=== PATIENT | female | born 1940 | race Caucasian/White ===

== ENCOUNTER 2016-10-05 07:27 | Day surgery (SDC) | payer MEDICARE ==
[~2016-10-05 07:27] MED LIST: Buffered Lidocaine 0.9% SYRIN* 5 ML/SYR SYRINGE INTRADERM ONE; Famotidine IV* 10 MG/ML 2 ML (20 mg) IV ONE
[2016-10-05] MEDS ORDERED: Famotidine IV* 10 MG/ML 2 ML (20 mg) ONE (08:06)
[2016-10-05] MEDS ORDERED: fentaNYL* 50 MCG/ML 2 ML VIAL (100 MCG VIAL) ONE (08:16)
[2016-10-05] MEDS ORDERED: Midazolam* 1 MG/ML 2 ML VIAL (2 MG) ONE (08:16)
[2016-10-05 08:29] LABS: Hematocrit 43 % (35-47); Hemoglobin 14.4 g/dl (12.0-16.0); Mean Corpuscular HGB Conc 33 g/dl (31-36); Mean Corpuscular Hemoglobin 32 pg (27-31); Mean Corpuscular Volume 96 fL (80-97); Mean Platelet Volume 9 um3 (7.4-10.4); Red Blood Count 4.49 10^6/ul (4.0-5.4); Red Cell Distribution Width 14 % (10.5-15); White Blood Count 6.3 10^3/ul (3.5-10.8)
[2016-10-05] MEDS ORDERED: HYDROmorphone* 1 MG/ML 1 ML SYR IV PRN (09:02)
[2016-10-05] MEDS ORDERED: DiMENhydriNATE IV* 50 MG/ML VIAL IV PUSH PRN (09:02)
[2016-10-05] MEDS ORDERED: oxyCODONE TAB* 5 MG TAB PO PRN (09:02)
[2016-10-05] MEDS ORDERED: Acetaminophen IV 1GM/100ML * 10 MG/ML VIAL IVPB ONE (09:02)
[2016-10-05] MEDS ORDERED: Chloroprocaine 2%* 20 ML VIAL ONE (09:06)
[2016-10-05] MEDS ORDERED: Propofol* 10 MG/ML 20 ML BTL IV PUSH ONE (09:31)
[2016-10-05] MEDS ORDERED: Ketorolac INJ* 30 MG/ML 1 ML VIAL ONE (09:31)
[2016-10-05] MEDS ORDERED: Ondansetron INJ* 2 MG/ML VIAL ONE (09:31)
[2016-10-05] MEDS ORDERED: Dexamethasone IV* 4 MG/ML 1 ML (4 MG) ONE (09:31)
[2016-10-05] MEDS ORDERED: Lidocaine 2% PF * 5 ML VIAL ONE (09:31)
[2016-10-05] MEDS ORDERED: Lidocaine 2% JELLY* 6 ML JELLY TOPICAL ONE (09:38)
[2016-10-05] MEDS ORDERED: Acetaminophen TAB* 325 MG PO ONE (09:47)
[2016-10-05 12:01] VITALS: BP 135/82
[2016-10-05] MEDS ORDERED: Acetaminophen TAB* 325 MG ONE (12:01)
--- NOTE | 2016-10-05 13:45 | OP ---
DATE OF PROCEDURE: 10/05/16 - [facility] DATE OF : 42 SURGEON: Nga Acharya MD ANESTHESIOLOGIST: Ruth Cunningham MD ANESTHESIA: Spinal. PRE-OP DIAGNOSIS: Postmenopausal bleeding, abnormal ultrasound finding of endometrial fluid, failed office endometrial biopsy. POST-OP DIAGNOSIS: Postmenopausal bleeding, abnormal ultrasound finding of endometrial fluid, failed office endometrial biopsy. OPERATIVE PROCEDURE: Hysteroscopy, D and C. ESTIMATED BLOOD LOSS: Minimal. SPECIMEN: Endometrial curettings. FLUIDS: Crystalloid. DRAINS: Almost 200 cc of clear urine drained prior to the procedure. FINDINGS: Stenotic external cervical OS, small uterus, normal-appearing uterine cavity with atrophic-appearing endometrium. DESCRIPTION OF PROCEDURE: After informed consent was signed, the patient was taken to the operating room where she was given spinal anesthesia that was found to be adequate. She was prepped and draped in the dorsal lithotomy position in the [facility]. A speculum was placed into the vagina to expose the cervix and the anterior lip of the cervix was grasped with a single- tooth tenaculum. The cervix was dilated with minimal difficulty getting into the external OS, but once that was opened the cervix was easily dilated until the hysteroscope could be inserted. Inspection of the endometrial cavity revealed a normal-appearing endometrial cavity. The hysteroscope was then removed and sharp curettage was used to collect a very scant amount of endometrial tissue. The tenaculum was removed with adequate hemostasis. The speculum was removed. The patient was then placed back into the supine position , awakened from anesthesia, moved to the stretcher, and taken to the recovery room in stable condition. [id number] #: [id number] MTDD
== END 2016-10-05 12:38 | disposition home or self-care (01) ==
LOC: OR 07:27
PROVIDERS: ATTEND Obstetrics & Gynecology
DX: N95.0 Postmenopausal bleeding (principal); I10 Essential (primary) hypertension; E03.9 Hypothyroidism, unspecified; Z86.718 Personal history of other venous thrombosis and embolism; Z79.82 Long term (current) use of aspirin
CPT/HCPCS: 36415; 85025; 85610; 86850; 86900; 86901; 88305; A9270-GY; J1100; J1885; J2250; J2400; J2405; J2704; J3010

== ENCOUNTER 2017-08-13 11:11 | Emergency (ER) | payer MEDICARE ==
[2017-08-13 11:24] VITALS: BP 153/86
--- NOTE | 2017-08-13 11:56 | RAD ---
HISTORY: Hematemesis COMPARISONS: June 27, 2006 VIEWS: 4: Frontal dual-energy and lateral views of the chest. FINDINGS: CARDIOMEDIASTINAL SILHOUETTE: The cardiomediastinal silhouette is normal. SOHAIL: The sohail are normal. PLEURA: The costophrenic angles are sharp. No pleural abnormalities are noted. LUNG PARENCHYMA: There is hyperinflation with flattening of the diaphragm and expansion of the AP diameter of the chest. There is calcified granuloma of the left lower lobe. ABDOMEN: The upper abdomen is clear. There is no subphrenic gas. BONES AND SOFT TISSUES: No bone or soft tissue abnormalities are noted. OTHER: None. IMPRESSION: HYPERINFLATION, CONSISTENT WITH COPD. NO ACTIVE CARDIOPULMONARY DISEASE.
--- NOTE | 2017-08-13 16:38 | UC ---
Cisco Vidal Angela, scribed for Jeffrey Cloud MD on 08/13/17 at 1132 . General HPI - HPI Summary HPI Summary: This pt is a 77 y/o female presenting to [facility] c/o spitting up blood this morning. Pt reports this morning she had post nasal drip and had phlegm in her throat. She states when she tried to bring up the phlegm, she noticed a blood clot in her sputum and blood in her mouth. Denies epistaxis, coughing spells, hematemesis, abd pain, weight loss, night sweats, fever, chills. Pt is not on anticoagulants. She is only taking aspirin. - History of Current Complaint Chief Complaint: UCRespiratory Stated Complaint: SPITTING BLOOD Time Seen by Provider: 08/13/17 11:22 Hx Obtained From: Patient Onset/Duration: Sudden Onset Current Severity: None Pain Intensity: 0 Aggravating: nothing Alleviating: nothing Associated Signs & Symptoms: Positive: Other - NEG: epistaxis, coughing spells, hematemesis, weight loss, night sweats, fever, chills. POS: post nasal drip, blood in sputum. Negative: Abdominal Pain, Cough, Chest Pain, Diaphoresis, Fever, Trauma, Vomiting - Allergy/Home Medications Allergies/Adverse Reactions: Allergies Allergy/AdvReac Type Severity Reaction Status Date / Time amoxicillin Allergy Rash Verified 08/13/17 11:25 Estrogens Allergy See Comment Verified 08/13/17 11:25 PMH/Surg Hx/FS Hx/Imm Hx - Additional Past Medical History Additional PMH: PMHx: arthritis Endocrine History: Hypothyroidism Cardiovascular History: Hypertension - Surgical History Surgical History: Yes Surgery Procedure, Year, and Place: tonsillectomy and adenoidectomy as a child - [place]. wisdom teeth extractiom in dental office. d&c - [facility] - Family History Family History: Mother: ovarian CA - Social History Alcohol Use: Occasionally Alcohol Amount: glass wine couple times per year Substance Use Type: None Smoking Status (MU): Never Smoked Tobacco Review of Systems Constitutional: Other - POS: bloody sputum. NEG: weight loss, night sweats, fever, chills Skin: Negative Eyes: Negative ENT: Other - POS: postnasal discharge, blood clot it sputum. NEG: epistaxis Respiratory: Negative Cardiovascular: Negative Gastrointestinal: Negative - hematemesis Genitourinary: Negative Motor: Negative Neurovascular: Negative Musculoskeletal: Negative Neurological: Negative Psychological: Negative All Other Systems Reviewed And Are Negative: Yes Physical Exam - Summary Physical Exam Summary: VITAL SIGNS: Reviewed. GENERAL: Patient is a well-developed and nourished female who is lying comfortable in the stretcher. Patient is not in any acute respiratory distress. HEAD AND FACE: Normocephalic. No sinus tenderness. EYES: PERRLA, EOMI x 2. EARS: Hearing grossly intact. MOUTH: Oropharynx within normal limits. NECK: Supple, trachea is midline, no adenopathy, no JVD, no carotid bruit. CHEST: Symmetric, no tenderness at palpation LUNGS: Clear to auscultation bilaterally. No wheezing or crackles. CVS: Regular rate and rhythm, S1 and S2 present, no murmurs or gallops appreciated. ABDOMEN: Soft, non-tender. Bowel sounds are normal. No abdominal abnormal pulsations. EXTREMITIES: Full ROM in all major joints, no edema, no cyanosis or clubbing. NEURO: Alert and oriented x 3. No acute neurological deficits. Speech is normal and follows commands. SKIN: Dry and warm Triage Information Reviewed: Yes Vital Signs: Initial Vital Signs Temp 98.8 F 08/13/17 11:21 Pulse 94 08/13/17 11:21 Resp 18 08/13/17 11:21 BP 153/86 08/13/17 11:21 Pulse Ox 100 08/13/17 11:21 Vital Signs Reviewed: Yes Diagnostics - Radiology Chest XR Xray Interpretation: No Acute Changes - IMPRESSION: Hyperinflation, consistent with COPD. No active cardiopulmonary disease. Dr. Cloud has reviewed this radiodology report. Radiology Interpretation Completed By: Radiologist Re-Evaluation - Re-Evaluation First Eval Re-Evaluation Time: 12:03 Comment: I reviewed the chest XR results. Pt will be discharged to home with strict return to ED instructions. Course/Dx - Course Course Of Treatment: This pt is a 77 y/o female presenting to [facility] c/o spitting up blood this morning. Pt reports this morning she had post nasal drip and had phlegm in her throat. She states when she tried to bring up the phlegm, she noticed a blood clot in her sputum and blood in her mouth. Denies epistaxis, coughing spells, hematemesis, abd pain, weight loss, night sweats, fever, chills. Pt is not on anticoagulants. She is only taking aspirin. Chest XR shows hyperinflation, consistent with COPD. No active cardiopulmonary disease. There is no source for the pts hemoptysis. I offered the pt to go to the ER, but she declines. She states she has a follow up with Nick on and she will follow up then. Pt will be discharged to home with follow up from PCP. I strongly recommended the pt that if she has any more episodes of hemoptysis she should go to the ER immediately for further assessment. Pt understands and agrees. I reviewed the chest XR with the pt. Plan of care was discussed with the patient, and pt understands and agrees. All questions were answered to patient satisfaction. There were no further complaints or concerns. Pt is hemodynamically stable, alert and oriented x3. - Differential Dx - Multi-Symptom Provider Diagnoses: Hemoptysis Discharge - Sign-Out/Discharge Documenting (check all that apply): Discharge/Admit/Transfer - Discharge - Discharge Plan Condition: Stable Disposition: HOME Patient Education Materials: Hemoptysis (ED) Referrals: Annamarie Weber MD [Primary Care Provider] - Additional Instructions: FOLLOW UP WITH YOUR PRIMARY CARE PROVIDER WITHIN ONE WEEK FOR HIGH BLOOD PRESSURE NOTED TODAY. RETURN TO URGENT CARE OR THE ED FOR ANY WORSENING OR NEW SYMPTOMS. The documentation as recorded by the Cisco guy Angela accurately reflects the service I personally performed and the decisions made by me, Jeffrey Cloud MD.
== END 2017-08-13 12:08 | disposition home or self-care (01) ==
LOC: UCEAST 11:11
DX: R04.2 Hemoptysis (principal); E03.9 Hypothyroidism, unspecified; I10 Essential (primary) hypertension; Z88.0 Allergy status to penicillin
CPT/HCPCS: 71046; 99212; G0463

== ENCOUNTER 2018-11-17 04:52 | Emergency (ER) | payer MEDICARE ==
[2018-11-17 05:44] LABS: Urine Appearance Cloudy; Urine Bacteria Absent (Absent); Urine Bilirubin Negative (Negative); Urine Blood 3+ (Negative); Urine Glucose Negative (Negative); Urine Ketones Trace (Negative); Urine Nitrite Negative (Negative); Urine Protein 2+(100 mg/dL) (Negative); Urine Red Blood Cell 3+(>10/hpf) (Absent); Urine Specific Gravity 1.015 (1.010-1.030); Urine Urobilinogen Negative (Negative); Urine White Blood Cell 3+(>20/hpf) (Absent)
[2018-11-17 05:46] LABS: Urine Color Red
[2018-11-17] MEDS ORDERED: Acetaminophen TAB* 325 MG PO ONE (05:50)
--- NOTE | 2018-11-17 06:08 | ED ---
GI/ HPI - HPI Summary HPI Summary: Pt. is a 78 y.o female who presents to the ER for hematuria, dysuria and urgency since yesterday. Pt. notes mild left sided back pain. Denies fever, chills, vomiting, CP, SOB. Past hx of hypothyroid and osteoporosis. Pt. is not anticoagulated. Sxs are moderate in severity. No current modifying factors. - History of Current Complaint Chief Complaint: EDUrogenitalProblems Time Seen by Provider: 11/17/18 05:37 Stated Complaint: POS UTI PER PT Hx Obtained From: Patient Pain Intensity: 9 - Allergy/Home Medications Allergies/Adverse Reactions: Allergies Allergy/AdvReac Type Severity Reaction Status Date / Time amoxicillin Allergy Rash Verified 11/17/18 04:55 Estrogens Allergy See Comment Verified 11/17/18 04:55 Home Medications: Home Medications Citrucel Powder 1 deanna PO DAILY PRN 11/17/18 [History Confirmed 11/17/18] Hydrochlorothiazide TAB* 12.5 mg PO DAILY 11/17/18 [History Confirmed 11/17/18] PMH/Surg Hx/FS Hx/Imm Hx Previously Healthy: Yes Endocrine/Hematology History: Reports: Hx Thyroid Disease - hypothyroidism Cardiovascular History: Reports: Hx Hypertension - was just taken off HCTZ one month ago by pcp - changed diet, Other Cardiovascular Problems/Disorders - hx dvt's r/t estrogen use GI History: Reports: Other GI Disorders - constipation - uses prn meds History: Reports: Other Problems/Disorders - recent bladder infection Musculoskeletal History: Reports: Hx Arthritis - osteoarthritis, Other Musculoskeletal History - osteoporosis Sensory History: Reports: Hx Contacts or Glasses - readers Denies: Hx Hearing Aid Opthamlomology History: Reports: Hx Contacts or Glasses - readers - Surgical History Surgery Procedure, Year, and Place: tonsillectomy [place] as a child - [place]. wisdom teeth extractiom in dental office[place] [place] Anesthesia Reactions: No Infectious Disease History: No Infectious Disease History: Denies: Traveled Outside the [place] in Last 30 Days - Family History Known Family History: Positive: Non-Contributory Family History: Mother: ovarian CA - Social History Occupation: Retired Lives: With Family Alcohol Use: Occasionally Alcohol Amount: glass wine couple times per year Substance Use Type: Reports: None Hx Tobacco Use: No Smoking Status (MU): Never Smoked Tobacco Review of Systems Constitutional: Negative Negative: Fever, Chills Cardiovascular: Negative Negative: Chest Pain Respiratory: Negative Negative: Shortness Of Breath, Cough Positive: Abdominal Pain, Nausea. Negative: Vomiting, Diarrhea Positive: frequency, hematuria Neurological: Negative All Other Systems Reviewed And Are Negative: Yes Physical Exam Triage Information Reviewed: Yes Vital Signs On Initial Exam: Initial Vitals Temp Pulse Resp BP Pulse Ox 98.8 F 110 16 187/100 97 11/17/18 04:54 11/17/18 04:54 11/17/18 04:54 11/17/18 04:54 11/17/18 04:54 Vital Signs Reviewed: Yes Appearance: Positive: Well-Appearing - Pt. lyingin bed in NAD. Family member present. Skin: Positive: Warm, Dry Head/Face: Positive: Normal Head/Face Inspection Eyes: Positive: Normal, EOMI Neck: Positive: Supple Respiratory/Lung Sounds: Positive: Clear to Auscultation, Breath Sounds Present Cardiovascular: Positive: Normal, RRR Abdomen Description: Positive: Other: - Abd. is soft with mild diffuse tenderness without guarding or rigidity. Mild left CVA tenderness. Musculoskeletal: Positive: Normal, Strength/ROM Intact Neurological: Positive: Normal, CN Intact II-III Psychiatric: Positive: Affect/Mood Appropriate Diagnostics - Vital Signs Vital Signs Temp Pulse Resp BP Pulse Ox 11/17/18 05:24 93 149/83 97 11/17/18 04:54 98.8 F 110 16 187/100 97 - Laboratory Lab Results: Lab Results 11/17/18 Range/Units 05:10 Urine Color Red A Urine Appearance Cloudy Urine pH 7.0 (5-9) Ur Specific [place] 1.015 (1.010-1.030) Urine Protein 2+(100 mg/dl) A (Negative) Urine Ketones Trace A (Negative) Urine Blood 3+ A (Negative) Urine Nitrate Negative (Negative) Urine Bilirubin Negative (Negative) Urine Urobilinogen Negative (Negative) Ur Leukocyte Esterase 2+ A (Negative) Urine WBC (Auto) 3+(>20/hpf) A (Absent) Urine RBC (Auto) 3+(>10/hpf) A (Absent) Urine Bacteria Absent (Absent) Urine Glucose Negative (Negative) Urine Ascorbic Acid * A (Negative) Result Diagrams: 11/17/18 06:05 11/17/18 06:05 Lab Statement: Any lab studies that have been ordered have been reviewed, and results considered in the medical decision making process. GIGU Course/Dx - Course Course Of Treatment: Pt. presenting with urinary sxs and hematuria. Pt. afebrile and well appearing. CBC unremarkable. CMP shows mildly low Na and Cl. U /S shows RBCS and WBCs. Give mild flank pain and noah hematuria CT scan obtained to r/o urolithiasis. CT scan per radiology is negative for acute findings. Results discussed. Will tx with Bactrim. To increase fluids. Tylenol for pain as directed. To f.u with PCP in 2-3 days. To return to ER for increased pain, fever, vomiting or if concerned. Pt. undertsands and agrees with plan. - Diagnoses Differential Diagnoses - Female: Urinary Tract Infection, Ureteral Calculi Provider Diagnoses: Hematuria, Suspected UTI Discharge - Sign-Out/Discharge Documenting (check all that apply): Patient Departure Patient Received Moderate/Deep Sedation with Procedure: No - Discharge Plan Condition: Good Disposition: HOME Prescriptions: Sulfamethox/Trimethoprim DS* [Bactrim DS 800/160 TAB*] 1 tab PO DAILY #20 tab Patient Education Materials: Urinary Tract Infection in Women (ED), Hematuria ( ED) Referrals: Annamarie Weber MD [Primary Care Provider] - Additional Instructions: Schedule a follow up appointment with PCP within one week Take antibiotic as directed Increase fluids Tylenol for pain as directed Return to ER for increased pain, fever, vomiting, or if concerned - Billing Disposition and Condition Condition: GOOD Disposition: Home
[2018-11-17 06:23] LABS: ABS Lymphocytes 0.4 10^3/ul (1.0-4.8); ABS Monocytes 0.4 10^3/ul (0-0.8); ABS Neutrophils 8.1 10^3/ul (1.5-7.7); Hematocrit 43 % (35-47); Hemoglobin 14.4 g/dL (12.0-16.0); Lymphocyte % 4.7 %; Mean Corpuscular HGB Conc 34 g/dL (31-36); Mean Corpuscular Hemoglobin 32 pg (27-31); Mean Corpuscular Volume 93 fL (80-97); Platelet Count 240 10^3/uL (150-450); Red Blood Count 4.56 10^6 /uL (3.70-4.87); Red Cell Distribution Width 13 % (10-15)
[2018-11-17 06:35] LABS: Albumin 4.4 g/dL (3.2-5.2); Albumin/Globulin Ratio 1.6 (1-3); BUN/Creatinine Ratio 13.4 (8-20); C Reactive Protein 4.88 mg/L (<8.01); Calcium 9.4 mg/dL (8.6-10.3); EGFR African American 103.3 (>60); EGFR Non-African American 85.3 (>60); Globulin 2.8 g/dL (2-4); Potassium 4.3 mmol/L (3.5-5.0); Total Bilirubin 0.7 mg/dL (0.2-1.0); Total Protein 7.2 g/dL (6.4-8.9)
[2018-11-17 08:03] VITALS: BP 133/75
--- NOTE | 2018-11-19 07:00 | PN ---
Progress Note - Progress Note Date of Service: 11/17/18 Note: Urine culture growing >100k e. coli. Pt. treated with Bactrim. Pending sensitivity.
== END 2018-11-17 08:01 | disposition home or self-care (01) ==
LOC: ED 04:52
DX: R31.9 Hematuria, unspecified (principal); R30.0 Dysuria; R39.15 Urgency of urination; R11.0 Nausea; R10.817 Generalized abdominal tenderness; I70.0 Atherosclerosis of aorta; I10 Essential (primary) hypertension; K59.00 Constipation, unspecified; Z88.0 Allergy status to penicillin; Z88.8 Allergy status to other drugs, medicaments and biological substances
CPT/HCPCS: 36415; 74176; 80053; 81003; 81015; 85025; 86140; 87077; 87086; 87186; 99283; A9270-GY